=== PATIENT | male | born 1985 | race Caucasian/White ===

== ENCOUNTER 2018-05-05 01:03 | Emergency (ER) | payer MEDICAID ==
[~2018-05-05] VITALS: Ht 152.4 cm; Wt 72.6 kg
[~2018-05-05 01:03] MED LIST: AMOX500 PO; CEPH500 PO; CRUTCH2 USE; DOXY100 PO; HYDACE5 PO; IBUP600 PO; IBUP800 PO; NAPR500 PO; Norco 5-325 Ta1 EACH PO; OXYACE5T PO; PRED20 PO; Percocet 5-3251 EACH PO; RXOXYACE PO; Zovirax400 MG PO
[2018-05-05] MEDS ORDERED: ACYC200 PO (01:30)
== END 2018-05-05 02:53 | disposition home or self-care (01) ==
LOC: ER 01:03
DX: M79.642 Pain in left hand (principal); Z79.899 Other long term (current) drug therapy
CPT/HCPCS: 73130; 99283

== ENCOUNTER 2018-06-07 21:27 | Emergency (ER) | payer OTHER ==
[~2018-06-07] VITALS: Ht 182.9 cm; Wt 68.0 kg
[~2018-06-07 21:27] MED LIST changes: +ACYC200 PO
[2018-06-07] MEDS ORDERED: DIPH50 PO (22:56)
[2018-06-08] MEDS ORDERED: BENADRYL25 MG PO (00:20)
[2018-06-08] MEDS ORDERED: Prednisone20 MG PO (00:20)
[2018-06-08] MEDS ORDERED: Doxycycline Hy100 MG PO (00:20)
== END 2018-06-08 00:32 | disposition home or self-care (01) ==
LOC: ER 21:27
DX: T63.441A Toxic effect of venom of bees, accidental (unintentional), initial encounter (principal); L03.115 Cellulitis of right lower limb; F17.210 Nicotine dependence, cigarettes, uncomplicated
CPT/HCPCS: 99282; J1100

== ENCOUNTER 2019-06-06 16:59 | Emergency (ER) | payer OTHER ==
[~2019-06-06] VITALS: Ht 182.9 cm; Wt 68.0 kg
[~2019-06-06 16:59] MED LIST changes: +BENADRYL25 MG PO; +DIPH50 PO; +Doxycycline Hy100 MG PO; +Prednisone20 MG PO
[2019-06-06] MEDS ORDERED: CEPH500 PO ×2 (18:12→18:13)
[2019-06-06] MEDS ORDERED: Bactrim Ds Tab1 EACH PO (18:13)
== END 2019-06-06 18:21 | disposition home or self-care (01) ==
LOC: ER 16:59
DX: L03.011 Cellulitis of right finger (principal); L02.511 Cutaneous abscess of right hand; F17.200 Nicotine dependence, unspecified, uncomplicated; Z79.899 Other long term (current) drug therapy
CPT/HCPCS: 10060; 99283-25

== ENCOUNTER 2019-06-08 18:24 | Emergency (ER) | payer OTHER ==
[~2019-06-08] VITALS: Ht 182.9 cm; Wt 67.3 kg
[~2019-06-08 18:24] MED LIST changes: +Bactrim Ds Tab1 EACH PO
== END 2019-06-08 21:14 | disposition home or self-care (01) ==
LOC: ER 18:24
DX: L02.511 Cutaneous abscess of right hand (principal); L03.011 Cellulitis of right finger; Z79.899 Other long term (current) drug therapy; F17.200 Nicotine dependence, unspecified, uncomplicated
CPT/HCPCS: 10060; 36415; 96365-59; 99283-25; J3370

== ENCOUNTER 2019-07-17 00:50 | Emergency (ER) | payer OTHER ==
[~2019-07-17] VITALS: Ht 182.9 cm; Wt 68.0 kg
== END 2019-07-18 03:00 | disposition left against medical advice (07) ==
LOC: ER 00:50
DX: Z53.21 Procedure and treatment not carried out due to patient leaving prior to being seen by health care provider (principal)

== ENCOUNTER 2020-12-24 23:04 | Emergency (ER) | payer OTHER ==
[~2020-12-24] VITALS: Ht 182.9 cm; Wt 74.8 kg
[2020-12-25] MEDS ORDERED: BACTRIM DS TAB1 EAC1 PO (00:10)
[2021-03-06] MEDS ORDERED: Ciloxan5 ML RIGHTEYE (02:12)
== END 2020-12-24 23:48 | disposition home or self-care (01) ==
LOC: ER 23:04
DX: L02.512 Cutaneous abscess of left hand (principal)
CPT/HCPCS: 10060; 99282-25; A9270

== ENCOUNTER 2021-01-20 00:53 | Emergency (ER) | payer OTHER ==
[~2021-01-20] VITALS: Ht 182.9 cm; Wt 72.6 kg
[~2021-01-20 00:53] MED LIST changes: +BACTRIM DS TAB1 EAC1 PO
[2021-01-20] MEDS ORDERED: ERYT1OIN LEFTEYE (02:51)
[2021-01-20] MEDS ORDERED: Prednisone20 MG PO (02:51)
[2021-03-06] MEDS ORDERED: Ciloxan5 ML RIGHTEYE (02:12)
== END 2021-01-20 03:20 | disposition home or self-care (01) ==
LOC: ER 00:53
DX: L23.7 Allergic contact dermatitis due to plants, except food (principal); H10.212 Acute toxic conjunctivitis, left eye; F17.200 Nicotine dependence, unspecified, uncomplicated
CPT/HCPCS: 99283; A9270; J7512

== ENCOUNTER 2021-01-29 19:55 | Emergency (ER) | payer OTHER ==
[~2021-01-29] VITALS: Ht 182.9 cm; Wt 68.0 kg
[~2021-01-29 19:55] MED LIST changes: +ERYT1OIN LEFTEYE
[2021-01-29] MEDS ORDERED: Bactrim Ds Tab1 EACH PO (20:45)
[2021-03-06] MEDS ORDERED: Ciloxan5 ML RIGHTEYE (02:12)
== END 2021-01-29 21:05 | disposition home or self-care (01) ==
LOC: ER 19:55
DX: L02.416 Cutaneous abscess of left lower limb (principal); F17.210 Nicotine dependence, cigarettes, uncomplicated; Z79.52 Long term (current) use of systemic steroids
CPT/HCPCS: 10060; 99283-25; A9270

== ENCOUNTER 2021-03-06 01:27 | Emergency (ER) | payer OTHER ==
[~2021-03-06] VITALS: Ht 182.9 cm; Wt 70.3 kg
== END 2021-03-06 02:38 | disposition home or self-care (01) ==
LOC: ER 01:27
DX: T15.01XA Foreign body in cornea, right eye, initial encounter (principal)
CPT/HCPCS: 65222; 99283-25; A9270

== ENCOUNTER 2021-03-30 04:26 | Observation (INO) | payer OTHER ==
[~2021-03-30] VITALS: Ht 182.9 cm; Wt 62.8 kg
[~2021-03-30 04:26] MED LIST changes: +Ciloxan5 ML RIGHTEYE
[2021-03-30 04:40] LABS: BASOPHILS ABSOLUTE AUTO 0.05 K/mm3 (0.00-0.23); BASOPHILS PERCENT AUTO 1 % (0-2); EOSINOPHILS PERCENT AUTO 4 % (0-6); Hematocrit 45.5 % (37.0-53.0); Hemoglobin 15.6 g/dL (13.5-17.5); IMMATURE GRAN ABSOLUTE AUTO 0.03 K/mm3 (0.00-0.10); IMMATURE GRAN PERCENT AUTO 0 % (0-1); LYMPHOCYTES ABSOLUTE AUTO 2.11 K/mm3 (0.84-5.20); LYMPHOCYTES PERCENT AUTO 29 % (21-46); MONOCYTES ABSOLUTE AUTO 0.79 K/mm3 (0.16-1.47); MONOCYTES PERCENT AUTO 11 % (4-13); Mean Corpuscular HGB 31.5 pg (26.0-34.0); Mean Corpuscular HGB Conc 34.3 g/dL (31.5-36.5); Mean Corpuscular Volume 92 fL (80-100); NEUTROPHILS ABSOLUTE AUTO 4.03 K/mm3 (1.96-9.15); NEUTROPHILS PERCENT AUTO 55 % (41-73); Platelet Count 384 K/mm3 (150-400); RDW Coefficient Variation 12.8 % (11.7-14.2); RDW Standard Deviation 43.7 fL (35.1-46.3); Red Blood Cell Count 4.95 M/mm3 (4.30-5.90); White Blood Cell Count 7.31 K/mm3 (4.00-11.30)
[2021-03-30 04:58] LABS: Alanine Aminotransfer (ALT/SGP 28 U/L (12-78); Albumin, Blood 3.9 g/dL (3.4-5.0); Albumin/Globulin Ratio 1.1 (0.8-1.8); Alk Phos 76 U/L (50-136); Anion Gap 4 mmol/L (6-16); Aspartate Aminotrans (AST/SGOT 24 U/L (12-37); Bilirubin, Total 0.2 mg/dL (0.1-1.0); Blood Urea Nitrogen 18 mg/dL (8-24); CO2, Blood 29 mmol/L (21-32); Calcium, Blood 8.6 mg/dL (8.5-10.1); Chloride, Blood 105 mmol/L (98-108); Creatinine, Blood 0.95 mg/dL (0.60-1.20); Ethanol (Alcohol), Blood, Med <3 mg/dL; Globulin, Blood 3.4 g/dL (2.2-4.0); Glomerular Filtration Rate >60 (60-); Glucose, Blood 60 mg/dL (70-99); Potassium, Blood 3.4 mmol/L (3.5-5.5); Sodium, Blood 138 mmol/L (136-145); Total Protein, Blood 7.3 g/dL (6.4-8.2)
--- NOTE | 2021-03-30 09:46 | NUR ---
PT ARRIVED TO THE SURGICAL FLOOR FROM THE ER A/OX3, VIA GURNEY, DUE TO PAIN THE PT WAS SLID OVER TO THE BED, THE PT C/O PAIN IN THE RIGHT KNEE MAINLY AND ALL OVER HIS BODY, THE PT WAS ORIENTED TO THE ROOM LAYOUT AND CALL SYSTEM, CALL LIGHT IN REACH, THE PT WAS ABLE TO VOID AND A UA WAS COLLECTED AND SENT
[2021-03-30 10:19] LABS: Source, Urine Voided
[2021-03-30 10:37] LABS: Appearance, Urine Clear (Clear); Bilirubin, Urine Neg (Neg); Blood, Urine Neg (Neg); Color, Urine Yellow (P-Yellow); Glucose Qualitative, Urine Neg (Neg); Ketones, Urine Neg (Neg); Leukocyte Esterase, Urine Neg (Neg); Nitrite, Urine Neg (Neg); Protein, Urine 2+ (Neg); Specific Gravity, Urine 1.015 (1.003-1.022); Urobilinogen, Urine NORM (Normal)
[2021-03-30 10:59] LABS: Bacteria Not Seen /hpf; Red Blood Cells, Urine Not Seen /hpf (0-2); Squamous Epithelial Cells Rare /hpf (Few); White Blood Cells, Urine Not Seen /hpf (0-5); Yeast/Fungi Urine Not Seen /hpf
[2021-03-30 11:17] LABS: U Amphetamine Screen DETECTED; U Barbituate Screen Not Detected; U Benzodiazapine Screen Not Detected; U Buprenorphine Screen Not Detected; U Cannabinoids Screen DETECTED; U Cocaine Screen Not Detected; U Methadone Screen Not Detected; U Methamphetamine Screen DETECTED; U Opiates Screen Not Detected; U Oxycodone Screen Not Detected; U Phencyclidine Screen Not Detected; U Propoxyphene Screen Not Detected
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
--- NOTE | 2021-03-30 19:20 | NUR ---
RECEIVED REPORT AND ASSUMED CARE OF PT. HE IS LYING IN BED WITH HIS SIGNIFICANT OTHER AND COMPLAINS OF PAIN. WILL MEDICATE PER JAN.
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
--- NOTE | 2021-03-31 05:50 | NUR ---
SHIFT SUMMARY: SOBEIDA AROUSES EASILY AND RESPONDS APPROPRIATELY. VSS, NO ACUTE EVENTS OVERNIGHT. HE HAS RESTED QUIETLY WITH HIS EYES CLOSED AND EVEN, UNLABORED RESPIRATIONS FOR THE MAJORITY OF THE NIGHT. HE REPORTS ADEQUATE PAIN CONTROL WITH 2 TABLETS OF NORCO AND TORADOL. HE IS TOLERATING PO INTAKE WELL, IV TO R AC PATENT, MOVES HIMSELF INDEPENDENTLY IN BED AND USES THE FWW FOR AMBULATION. SCDs IN PLACE. HE IS URINATING WITHOUT DIFFICULTY. HE IS LYING IN BED WITH THE CALL LIGHT IN REACH. WILL REPORT TO DAY SHIFT RN.
[2021-03-31] MEDS ORDERED: CEPH500 PO (10:39)
[2021-03-31] MEDS ORDERED: HYDR1TAB94 PO (10:39)
--- NOTE | 2021-03-31 11:09 | NUR ---
DISCHARGE SUMMARY PT A&OX4, VSS, VOIDING, TOLERATING, PAIN MANAGED, AMBULATING IND TO [facility]. LEAVING TO GO HOME WITH GF, WITH ALL PERSONAL POSSESSIONS INCLUDING DC PACKET AND 1 NARC SCRIPT AND 1 ABX SCRIPT. DC INSTRUCTIONS PROVIDED. PT REP UNDERSTANDING THOSE INSTRUCTIONS INCLUDING FU WITH DR DE LEÓN AND PCP DR PAULSON IN 1 WK. IV DC'D.
== END 2021-03-31 13:39 | disposition home or self-care (01) ==
LOC: ER 04:26 → SURS 04:27 → ER 06:10 → SURS 08:20
PROVIDERS: Emergency Medicine; ADMIT Surgery
PROC: 0HQ1XZZ Repair Face Skin, External Approach (ICD-10-PCS; principal; 2021-03-31)
PROC: 0HQNXZZ Repair Left Foot Skin, External Approach (ICD-10-PCS; 2021-03-31)
DX: S01.511A Laceration without foreign body of lip, initial encounter (principal); S91.012A Laceration without foreign body, left ankle, initial encounter; S02.401A Maxillary fracture, unspecified side, initial encounter for closed fracture; J93.9 Pneumothorax, unspecified; S66.811A Strain of other specified muscles, fascia and tendons at wrist and hand level, right hand, initial encounter; F17.200 Nicotine dependence, unspecified, uncomplicated; V47.5XXA Car driver injured in collision with fixed or stationary object in traffic accident, initial encounter; Y92.488 Other paved roadways as the place of occurrence of the external cause; Z23 Encounter for immunization
CPT/HCPCS: 12001; 29125; 70450; 70486; 71045; 71260; 72125; 73110; 73560-RT; 73610; 74177; 80053; 81001; 83605; 85025; 90714; 96365-59; 96375-59; 96376-59; 99285-25; A9270; G0378; G0480; J0295; J0690; J1170; J1650; J1885; J3010; L3917; Q9967

== ENCOUNTER 2021-09-11 18:42 | Emergency (ER) | payer OTHER ==
[~2021-09-11] VITALS: Ht 182.9 cm; Wt 68.0 kg
[~2021-09-11 18:42] MED LIST changes: +HYDR1TAB94 PO
== END 2021-09-11 20:52 | disposition left against medical advice (07) ==
LOC: ER 18:42
DX: Z53.21 Procedure and treatment not carried out due to patient leaving prior to being seen by health care provider (principal)
CPT/HCPCS: 99282

== ENCOUNTER → 2021-09-14 | Outpatient (CLI) | payer OTHER ==
[2021-09-18 01:09] LABS: CHLAMYDIA TRACHOMATIS, NAA Positive (Negative)
== END | disposition home or self-care (01) ==
LOC: LAB 16:54 → LAB SHORT 16:54
PROVIDERS: Physician Assistant Medical
DX: N39.0 Urinary tract infection, site not specified (principal); R36.9 Urethral discharge, unspecified
CPT/HCPCS: 87077; 87086; 87185; 87491; 87591

== ENCOUNTER 2023-09-16 02:05 | Emergency (ER) | payer OTHER ==
[~2023-09-16] VITALS: Ht 182.9 cm; Wt 65.8 kg
[2023-09-16] MEDS ORDERED: AMOCLA875 PO (05:32)
[2023-09-16] MEDS ORDERED: SULTRIDS PO (05:32)
[2023-09-16 06:49] VITALS: BP 128/80
== END 2023-09-16 08:55 | disposition home or self-care (01) ==
LOC: ER 02:05
DX: S61.452A Open bite of left hand, initial encounter (principal); L08.9 Local infection of the skin and subcutaneous tissue, unspecified; W54.0XXA Bitten by dog, initial encounter; F17.200 Nicotine dependence, unspecified, uncomplicated
CPT/HCPCS: 73130; 87040; 96365; 96366; 96367; 99283-25; A9270; J0696; J3370; J7030; J7050

== ENCOUNTER 2023-09-17 01:39 | Observation (INO) | payer OTHER ==
[~2023-09-17] VITALS: Ht 182.9 cm; Wt 76.0 kg
[~2023-09-17 01:39] MED LIST changes: +AMOCLA875 PO; +SULTRIDS PO
[2023-09-17 02:47] LABS: BASOPHILS ABSOLUTE AUTO 0.04 K/mm3 (0.00-0.23); BASOPHILS PERCENT AUTO 0 % (0-2); EOSINOPHILS PERCENT AUTO 3 % (0-6); Hematocrit 41.1 % (37.0-53.0); Hemoglobin 14.2 g/dL (13.5-17.5); IMMATURE GRAN ABSOLUTE AUTO 0.04 K/mm3 (0.00-0.10); IMMATURE GRAN PERCENT AUTO 0 % (0-1); LYMPHOCYTES ABSOLUTE AUTO 2.09 K/mm3 (0.84-5.20); LYMPHOCYTES PERCENT AUTO 17 % (21-46); MONOCYTES PERCENT AUTO 9 % (4-13); Mean Corpuscular HGB 32.3 pg (26.0-34.0); Mean Corpuscular HGB Conc 34.5 g/dL (31.5-36.5); Mean Corpuscular Volume 93 fL (80-100); Mean Platelet Volume 9.5 fL (9.1-12.4); NEUTROPHILS ABSOLUTE AUTO 8.67 K/mm3 (1.96-9.15); NEUTROPHILS PERCENT AUTO 71 % (41-73); Platelet Count 307 K/mm3 (150-400); RDW Standard Deviation 44.5 fL (35.1-46.3); White Blood Cell Count 12.24 K/mm3 (4.00-11.30)
[2023-09-17 03:21] LABS: Alanine Aminotransfer (ALT/SGP 36 U/L (12-78); Albumin, Blood 3.5 g/dL (3.4-5.0); Alk Phos 80 U/L (50-136); Anion Gap 3 mmol/L (6-16); Aspartate Aminotrans (AST/SGOT 19 U/L (12-37); Bilirubin, Total <0.1 mg/dL (0.1-1.0); Blood Urea Nitrogen 8 mg/dL (8-24); Bun/Creatinine Ratio 9.7 (12.0-20.0); CO2, Blood 29 mmol/L (21-32); Calcium, Blood 8.7 mg/dL (8.5-10.1); Chloride, Blood 109 mmol/L (98-108); Creatinine, Blood 0.82 mg/dL (0.60-1.20); Globulin, Blood 3.5 g/dL (2.2-4.0); Glomerular Filtration Rate 117 (60-); Glucose, Blood 90 mg/dL (70-99); Potassium, Blood 3.8 mmol/L (3.5-5.5); Sodium, Blood 141 mmol/L (136-145)
[2023-09-17 05:44] VITALS: BP 137/82
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
[2023-09-17 07:17] LABS: BASOPHILS ABSOLUTE AUTO 0.04 K/mm3 (0.00-0.23); BASOPHILS PERCENT AUTO 0 % (0-2); EOSINOPHILS ABSOLUTE AUTO 0.28 K/mm3 (0.00-0.68); EOSINOPHILS PERCENT AUTO 3 % (0-6); Hematocrit 39.8 % (37.0-53.0); Hemoglobin 13.7 g/dL (13.5-17.5); IMMATURE GRAN ABSOLUTE AUTO 0.02 K/mm3 (0.00-0.10); IMMATURE GRAN PERCENT AUTO 0 % (0-1); LYMPHOCYTES ABSOLUTE AUTO 2.43 K/mm3 (0.84-5.20); LYMPHOCYTES PERCENT AUTO 21 % (21-46); MONOCYTES ABSOLUTE AUTO 0.79 K/mm3 (0.16-1.47); MONOCYTES PERCENT AUTO 7 % (4-13); Mean Corpuscular HGB 31.9 pg (26.0-34.0); Mean Corpuscular HGB Conc 34.4 g/dL (31.5-36.5); Mean Corpuscular Volume 93 fL (80-100); Mean Platelet Volume 9.3 fL (9.1-12.4); NEUTROPHILS PERCENT AUTO 69 % (41-73); Platelet Count 282 K/mm3 (150-400); RDW Coefficient Variation 13.2 % (11.7-14.2); RDW Standard Deviation 44.5 fL (35.1-46.3); White Blood Cell Count 11.36 K/mm3 (4.00-11.30)
[2023-09-17 07:32] VITALS: BP 121/90
[2023-09-17 07:44] LABS: Albumin, Blood 3.3 g/dL (3.4-5.0); Bilirubin, Total 0.1 mg/dL (0.1-1.0); Bun/Creatinine Ratio 7.6 (12.0-20.0); Calcium, Blood 8.2 mg/dL (8.5-10.1); Creatinine, Blood 0.79 mg/dL (0.60-1.20); Globulin, Blood 3.2 g/dL (2.2-4.0); Total Protein, Blood 6.5 g/dL (6.4-8.2)
[2023-09-17 16:44] VITALS: BP 120/80
--- NOTE | 2023-09-17 18:30 | NUR ---
SHIFT SUMMARY ASSUMED CARE OF PATIENT AT 1430. PATIENT ALERT AND ORIENTED. ABLE TO VERBALIZE NEEDS. INDEPENDENT IN THE ROOM. MRI ON HOLD, WAITING FOR INFORMATION FOR POSSIBLE CLIPS OR STENTS. PATIENT UNCLEAR TO WHAT PROCEDURE WAS PERFORMED OR IF THERE IS ANY METAL REMAINING. L HAND SWOLLEN. CONTINUES TO DRAIN SMALL AMOUNTS OF SEROUS FLUID FROM BETWEEN FINGERS. PATIENT UP TO SHOWER. PATIENT CONTINUES ON IV ANTIBIOTICS AT THIS TIME.
[2023-09-17 19:27] VITALS: BP 149/88
[2023-09-18 02:08] VITALS: BP 138/86
[2023-09-18 02:34] LABS: BASOPHILS ABSOLUTE AUTO 0.06 K/mm3 (0.00-0.23); BASOPHILS PERCENT AUTO 1 % (0-2); EOSINOPHILS ABSOLUTE AUTO 0.41 K/mm3 (0.00-0.68); EOSINOPHILS PERCENT AUTO 5 % (0-6); Hematocrit 41.7 % (37.0-53.0); Hemoglobin 14.3 g/dL (13.5-17.5); IMMATURE GRAN ABSOLUTE AUTO 0.08 K/mm3 (0.00-0.10); IMMATURE GRAN PERCENT AUTO 1 % (0-1); LYMPHOCYTES ABSOLUTE AUTO 2.17 K/mm3 (0.84-5.20); LYMPHOCYTES PERCENT AUTO 25 % (21-46); MONOCYTES ABSOLUTE AUTO 0.71 K/mm3 (0.16-1.47); MONOCYTES PERCENT AUTO 8 % (4-13); Mean Corpuscular HGB 32.2 pg (26.0-34.0); Mean Corpuscular HGB Conc 34.3 g/dL (31.5-36.5); Mean Corpuscular Volume 94 fL (80-100); Mean Platelet Volume 9.7 fL (9.1-12.4); NEUTROPHILS ABSOLUTE AUTO 5.25 K/mm3 (1.96-9.15); NEUTROPHILS PERCENT AUTO 61 % (41-73); Platelet Count 371 K/mm3 (150-400); RDW Coefficient Variation 12.9 % (11.7-14.2); RDW Standard Deviation 44.6 fL (35.1-46.3); Red Blood Cell Count 4.44 M/mm3 (4.30-5.90); White Blood Cell Count 8.68 K/mm3 (4.00-11.30)
[2023-09-18 03:03] LABS: Alanine Aminotransfer (ALT/SGP 30 U/L (12-78); Albumin, Blood 3.2 g/dL (3.4-5.0); Alk Phos 73 U/L (50-136); Anion Gap 3 mmol/L (6-16); Aspartate Aminotrans (AST/SGOT 16 U/L (12-37); Bilirubin, Total 0.2 mg/dL (0.1-1.0); Blood Urea Nitrogen 12 mg/dL (8-24); Bun/Creatinine Ratio 13.3 (12.0-20.0); CO2, Blood 26 mmol/L (21-32); Calcium, Blood 8.6 mg/dL (8.5-10.1); Chloride, Blood 108 mmol/L (98-108); Globulin, Blood 3.2 g/dL (2.2-4.0); Glomerular Filtration Rate 114 (60-); Glucose, Blood 139 mg/dL (70-99); Potassium, Blood 3.7 mmol/L (3.5-5.5); Sodium, Blood 137 mmol/L (136-145); Total Protein, Blood 6.4 g/dL (6.4-8.2); Vancomycin, Trough 18.5 ug/mL (5.0-10.0)
--- NOTE | 2023-09-18 06:30 | NUR ---
A/O PT VERY PLEASENT JUST LAYING QUIETLY IN BED, BITE TO LEFT HAD SEEMS TO BE BETTER, SWELLING HAS GONE DOWN SIGNIFICANTLY. NO CHANGE IN PT, NO C/O PAIN NO DISTRESS, MAKES NEEDS KNOWN, WILL CONT ANTIBIOTIC THERAPY.
[2023-09-18 07:27] VITALS: BP 134/84
[2023-09-18] MEDS ORDERED: VISBIOME 112.51 EACH PO (10:05)
--- NOTE | 2023-09-18 17:28 | NUR ---
SHIFT SUMMARY AND DISCHARGE PATIENT DISCHARGED TO HOME. PATIENT CONTINUES TO HAVE SWELLING OF L ARM AND HAND. SWELLING AND REDNESS DECREASED COMPARED TO YESTERDAY. UNABLE TO COMPLETE MRI. PROVIDERS NOTIFED THAT MRI UNABLE TO BE DONE. PROVIDERS CONTINUED WITH DISCHARGE. DISCHARGE INSTRUCTIONS REVIEWED WITH PATIENT. IV DC'D. PATIENT AMBULATED OUT AND NOT WANTING WHEELCHAIR.
== END 2023-09-18 14:15 | disposition home or self-care (01) ==
LOC: ER 01:39 → MEDS 01:40 → ENPENDDIS 09-18 09:49 → MEDS 09-18 14:15
PROVIDERS: Emergency Medicine; ADMIT Student in an Organized Health Care Education/Training Program
DX: L03.114 Cellulitis of left upper limb (principal); S61.452A Open bite of left hand, initial encounter; W54.0XXA Bitten by dog, initial encounter
CPT/HCPCS: 36415; 80053; 80202; 85025; 87070; 87077; 87147; 87186; 87205; 96365; 96366; 96367; 96375; 99284-25; A9270; J0696; J1650; J1885; J3370; J7030; J7050

== ENCOUNTER 2024-08-13 09:54 | Emergency (ER) | payer OTHER ==
[~2024-08-13] VITALS: Ht 182.9 cm; Wt 65.8 kg
[~2024-08-13 09:54] MED LIST changes: +VISBIOME 112.51 EACH PO
[2024-08-13] MEDS ORDERED: FentaNYL Citrate 50 MCG/ML 2 ML Injection IV ONE (10:40)
[2024-08-13 11:16] LABS: BASOPHILS ABSOLUTE AUTO 0.07 K/mm3 (0.00-0.23); BASOPHILS PERCENT AUTO 1 % (0-2); EOSINOPHILS ABSOLUTE AUTO 0.16 K/mm3 (0.00-0.68); EOSINOPHILS PERCENT AUTO 2 % (0-6); Hematocrit 44.2 % (37.0-53.0); Hemoglobin 15.1 g/dL (13.5-17.5); IMMATURE GRAN ABSOLUTE AUTO 0.02 K/mm3 (0.00-0.10); IMMATURE GRAN PERCENT AUTO 0 % (0-1); LYMPHOCYTES ABSOLUTE AUTO 1.91 K/mm3 (0.84-5.20); LYMPHOCYTES PERCENT AUTO 20 % (21-46); MONOCYTES ABSOLUTE AUTO 0.85 K/mm3 (0.16-1.47); MONOCYTES PERCENT AUTO 9 % (4-13); Mean Corpuscular HGB 31.7 pg (26.0-34.0); Mean Corpuscular HGB Conc 34.2 g/dL (31.5-36.5); Mean Corpuscular Volume 93 fL (80-100); Mean Platelet Volume 9.3 fL (9.1-12.4); NEUTROPHILS ABSOLUTE AUTO 6.72 K/mm3 (1.96-9.15); NEUTROPHILS PERCENT AUTO 69 % (41-73); Platelet Count 339 K/mm3 (150-400); RDW Coefficient Variation 12.9 % (11.7-14.2); RDW Standard Deviation 43.9 fL (35.1-46.3); Red Blood Cell Count 4.76 M/mm3 (4.30-5.90); White Blood Cell Count 9.73 K/mm3 (4.00-11.30)
[2024-08-13 11:29] LABS: Albumin, Blood 3.6 g/dL (3.4-5.0); Albumin/Globulin Ratio 1.1 (0.8-1.8); Bilirubin, Total 0.2 mg/dL (0.1-1.0); Calcium, Blood 9.1 mg/dL (8.5-10.1); Globulin, Blood 3.3 g/dL (2.2-4.0); Potassium, Blood 4.3 mmol/L (3.5-5.5); Total Protein, Blood 6.9 g/dL (6.4-8.2)
[2024-08-13 11:37] VITALS: BP 106/67
[2024-08-13] MEDS ORDERED: Norco 5-325 Ta1 EACH PO (14:36)
[2024-08-15] MEDS ORDERED: Norco 10-325 T1 EACH PO ×2 (08:25)
== END 2024-08-13 13:52 | disposition home or self-care (01) ==
LOC: ER 09:54
PROVIDERS: Physician Assistant
DX: S93.402A Sprain of unspecified ligament of left ankle, initial encounter (principal); S83.92XA Sprain of unspecified site of left knee, initial encounter; S99.922A Unspecified injury of left foot, initial encounter; F17.210 Nicotine dependence, cigarettes, uncomplicated; V29.99XA Rider (driver) (passenger) of other motorcycle injured in unspecified traffic accident, initial encounter
CPT/HCPCS: 72040; 73502; 73562-LT; 73610; 73630; 80053; 85025; 96374; 99283-25; J3010

== ENCOUNTER 2025-04-17 23:48 | Emergency (ER) | payer OTHER ==
[~2025-04-17] VITALS: Ht 182.9 cm; Wt 70.3 kg
[~2025-04-17 23:48] MED LIST changes: +Norco 10-325 T1 EACH PO
[2025-04-18 00:23] VITALS: BP 138/83
[2025-04-18] MEDS ORDERED: Diphth,Pertuss(Acell),Tet Vac 0.5 ML VIAL IM ONE (00:30)
== END 2025-04-18 00:52 | disposition home or self-care (01) ==
LOC: ER 23:48
DX: S61.012A Laceration without foreign body of left thumb without damage to nail, initial encounter (principal); F17.210 Nicotine dependence, cigarettes, uncomplicated; W26.8XXA Contact with other sharp object(s), not elsewhere classified, initial encounter; Z23 Encounter for immunization
CPT/HCPCS: 12002; 90471; 90715; 99282-25

== ENCOUNTER 2025-06-08 22:09 | Emergency (ER) | payer OTHER ==
[~2025-06-08] VITALS: Ht 182.9 cm; Wt 68.0 kg
[2025-06-08 22:56] VITALS: BP 163/99
[2025-06-08] MEDS ORDERED: Ketorolac Tromethamine 30mg Vial IM ONE (23:00)
[2025-06-09] MEDS ORDERED: Percocet 5-3251 EACH PO (17:31)
[2025-06-09] MEDS ORDERED: BETASEPT118 M1 UD (17:31)
[2025-06-09] MEDS ORDERED: IBUP800 PO (17:31)
[2025-06-09] MEDS ORDERED: PRED20 PO (17:31)
[2025-06-09] MEDS ORDERED: Cleocin HCl150 MG PO (17:31)
== END 2025-06-09 00:50 | disposition left against medical advice (07) ==
LOC: ER 22:09
DX: K04.7 Periapical abscess without sinus (principal); Z53.21 Procedure and treatment not carried out due to patient leaving prior to being seen by health care provider
CPT/HCPCS: 96372; J1885

== ENCOUNTER 2025-06-09 13:13 | Emergency (ER) | payer OTHER ==
[~2025-06-09] VITALS: Ht 182.9 cm; Wt 70.3 kg
[2025-06-09] MEDS ORDERED: Ondansetron HCl 2 MG / ML 2ML Vial IV PRN (13:50)
[2025-06-09 14:41] LABS: Alanine Aminotransfer (ALT/SGP 44.0 U/L (12-78); Albumin, Blood 3.6 g/dL (3.4-5.0); Albumin/Globulin Ratio 0.9 (0.8-1.8); Anion Gap 6.0 mmol/L (3-11); Aspartate Aminotrans (AST/SGOT 17.0 U/L (12-37); BASOPHILS ABSOLUTE AUTO 0.05 K/mm3 (0.00-0.23); BASOPHILS PERCENT AUTO 0 % (0-2); Bilirubin, Total 0.5 mg/dL (0.1-1.0); Blood Urea Nitrogen 12.0 mg/dL (8-24); CO2, Blood 30.0 mmol/L (21-32); Calcium, Blood 8.7 mg/dL (8.5-10.1); Chloride, Blood 104.0 mmol/L (98-108); Creatinine, Blood 0.82 mg/dL (0.60-1.20); EOSINOPHILS ABSOLUTE AUTO 0.17 K/mm3 (0.00-0.68); EOSINOPHILS PERCENT AUTO 1 % (0-6); Globulin, Blood 3.9 g/dL (2.2-4.0); Glucose, Blood 99.0 mg/dL (70-99); Hematocrit 41.4 % (37.0-53.0); Hemoglobin 14.5 g/dL (13.5-17.5); IMMATURE GRAN ABSOLUTE AUTO 0.06 K/mm3 (0.00-0.10); IMMATURE GRAN PERCENT AUTO 1 % (0-1); LYMPHOCYTES ABSOLUTE AUTO 1.69 K/mm3 (0.84-5.20); LYMPHOCYTES PERCENT AUTO 13 % (21-46); MONOCYTES ABSOLUTE AUTO 1.19 K/mm3 (0.16-1.47); MONOCYTES PERCENT AUTO 9 % (4-13); Mean Corpuscular HGB Conc 35.0 g/dL (31.5-36.5); Mean Corpuscular Volume 90 fL (80-100); NEUTROPHILS ABSOLUTE AUTO 9.96 K/mm3 (1.96-9.15); NEUTROPHILS PERCENT AUTO 76 % (41-73); NRBC ABSOLUTE 0.00 K/mm3 (0.00-0.02); NRBC Auto 0.0 /100 WBC (0.0-0.2); Platelet Count 351 K/mm3 (150-400); Potassium, Blood 3.6 mmol/L (3.5-5.5); RDW Coefficient Variation 13.2 % (11.7-14.2); RDW Standard Deviation 43.2 fL (35.1-46.3); Sodium, Blood 136.0 mmol/L (136-145); Total Protein, Blood 7.5 g/dL (6.4-8.2)
[2025-06-09] MEDS ORDERED: NS 1,000 ML IV SCH (17:10)
[2025-06-09] MEDS ORDERED: Clindamycin 600mg in D5W 50 ML IV ONE (17:10)
[2025-06-09] MEDS ORDERED: Dexamethasone Sod Phos 10 MG/ML 1ML VIAL IV ONE (17:10)
[2025-06-09] MEDS ORDERED: Ketorolac Tromethamine 15mg Vial IV ONE (17:15)
[2025-06-09] MEDS ORDERED: Percocet 5-3251 EACH PO (17:31)
[2025-06-09] MEDS ORDERED: IBUP800 PO (17:31)
[2025-06-09] MEDS ORDERED: PRED20 PO (17:31)
[2025-06-09] MEDS ORDERED: Cleocin HCl150 MG PO (17:31)
[2025-06-09] MEDS ORDERED: BETASEPT118 M1 UD (17:31)
[2025-06-09 19:17] VITALS: BP 106/62
== END 2025-06-09 19:27 | disposition home or self-care (01) ==
LOC: ER 13:13
PROVIDERS: Student in an Organized Health Care Education/Training Program
DX: K04.7 Periapical abscess without sinus (principal); L03.211 Cellulitis of face; K02.9 Dental caries, unspecified; K05.10 Chronic gingivitis, plaque induced
CPT/HCPCS: 70491; 80053; 85025; 96365-59; 96375; 99284-25; A9270; J1100; J1885; J7030; Q9967